=== PATIENT | male | born 1965 ===

== ENCOUNTER 2019-06-22 06:00 | Day surgery (SDC) | payer OTHER | END 2019-06-22 11:50 | disposition home or self-care (01) | LOC: AMB-ENDOS 06:00 → EDBD 06:00 → AMB-ENDOS 11:50 | DX: K64.8 Other hemorrhoids (principal); R19.4 Change in bowel habit; Z12.11 Encounter for screening for malignant neoplasm of colon ==

== ENCOUNTER 2021-04-09 08:19 | Outpatient (CLI) | payer OTHER | END 2021-04-09 08:23 | disposition home or self-care (01) | LOC: SONOGRAMA 08:19 | PROVIDERS: ATTEND Pathology Anatomic Pathology & Clinical Pathology | DX: E07.89 Other specified disorders of thyroid (principal); E04.1 Nontoxic single thyroid nodule ==

== ENCOUNTER 2021-09-03 08:41 | Outpatient (CLI) | payer OTHER | END 2021-09-03 08:43 | disposition home or self-care (01) | LOC: SONOGRAMA 08:41 | PROVIDERS: ATTEND Pathology Anatomic Pathology & Clinical Pathology | DX: E04.2 Nontoxic multinodular goiter (principal) ==